=== PATIENT | male | born 1945 | race African-American/Black ===

== ENCOUNTER 2016-09-11 18:06 | Inpatient (IN) | payer OTHER, BC ==
[2016-09-11 18:55] VITALS: BMI 28.2
[2016-09-11 19:57] LABS: BASOPHIL 1.2 % (0-2.0); EOSINOPHIL 0.8 % (0-4.5); MCH 28.2 pg (25.7-33.7); MCHC 33.3 g/dl (32.0-35.9); MEAN CELL VOLUME 84.7 fl (80-96); MEAN PLT VOLUME 8.3 fl (7.5-11.1); NEUTROPHILS 65.4 % (42.8-82.8); PLATELET COUNT 266 K/MM3 (134-434); RDW 13.5 % (11.9-15.9); WHITE BLOOD COUNT 8.3 K/mm3 (4.0-10.0)
--- NOTE | 2016-09-11 20:07 | PDOC ---
History of Present Illness - General Chief Complaint: Shortness of Breath Stated Complaint: Shortness of Breath/anxiety/run out of med for htn Time Seen by Provider: 09/11/16 19:19 - History of Present Illness Initial Comments: 09/11/16 20:06 CHIEF COMPLAINT: SOB HISTORY OF PRESENT ILLNESS: 71 yo M with hx of HTN presents to ED with SOB x 2 days. Patient reports that he ran out of his blood pressure medications ( lisinoprol, amlodipine, metoprolol) and has not taken them for a week. Patient reports that he was coughing and sneezing the last two days but "thought it was allergies." He denies any chest pain, back pain, palpitations, fever, chills, nausea, vomiting, diarrhea. PCP: Fabrizio Sims: Kristin PAST MEDICAL HISTORY: as per HPI FAMILY HISTORY: both parents hx of PE, brother SOCIAL HISTORY: Former smoker, quit 35 years ago. Denies alcohol, illicit drug use. SURGICAL HISTORY: tonsillectomy, "leg surgery when i was a little kid" ALLERGIES: No known drug allergies REVIEW OF SYSTEMS General/Constitutional: Denies fever or chills. Denies weakness, weight change. HEENT: Denies change in vision. Denies ear pain or discharge. Denies sore throat. Cardiovascular: SOB x 2 days. Denies chest pain. Respiratory: Denies cough, wheezing, or hemoptysis. Gastrointestinal: Denies nausea, vomiting, diarrhea or constipation. Denies rectal bleeding. Genitourinary: Denies dysuria, frequency, or change in urination. Musculoskeletal: Denies joint or muscle swelling or pain. Denies neck or back pain. Skin and breasts: Denies rash or easy bruising. Neurologic: Denies headache, vertigo, loss of consciousness, or loss of sensation. PHYSICAL EXAM General Appearance: Well-appearing, appropriately dressed. No apparent distress. HEENT: EOMI, PERRLA, normal ENT inspection, normal voice, TMs normal, pharynx normal. No conjunctival pallor. No photophobia, scleral icterus. Neck: Supple. Trachea midline. No tenderness, rigidity, carotid bruit, stridor , lymphadenopathy, or thyromegaly. Respiratory/Chest: Shortness of breath. Lungs CTAB. No chest tenderness, respiratory distress, accessory muscle use. No crackles, rales, rhonchi, stridor , wheezing, dullness Cardiovascular: RRR. S1, S2. No JVD, murmur, bradycardia, tachycardia. Gastrointestinal/Abdominal: Normal bowel sounds. Abdomen soft, non-distended. No tenderness or rebound tenderness. No organomegaly, pulsatile mass, guarding , hernia, hepatomegaly, splenomegaly. Musculoskeletal/Extremities: Normal inspection. FROM of all extremities, normal capillary refill. Pelvis Stable. No CVA tenderness. No tenderness to extremities, pedal edema, swelling, erythema or deformity. Integumentary: Appropriate color, dry, warm. No cyanosis, erythema, jaundice or rash Neurologic: manager of distribution II-XII intact. Fully oriented, alert. Appropriate mood/affect. Motor strength 5/5. No appreciable EOM palsy, facial droop or sensory deficit. 09/11/16 20:08 09/11/16 23:19 Past History - Past Medical History Allergies/Adverse Reactions: Allergies Allergy/AdvReac Type Severity Reaction Status Date / Time No Known Allergies Allergy Verified 09/11/16 18:55 Home Medications: Ambulatory Orders Lisinopril [Prinivil] 40 mg PO DAILY 12/04/11 Metoprolol Succinate [Toprol XL] 100 mg PO BID 12/04/11 Ascorbate Calcium [Vitamin C] 1,000 mg PO DAILY 03/19/15 Aspirin [Ecotrin] 81 mg PO DAILY 03/19/15 Amlodipine Besylate [Norvasc -] 5 mg PO DAILY 09/11/16 HTN: Yes - Psycho/Social/Smoking Cessation Hx Anxiety: No Suicidal Ideation: No Smoking Status: No Smoking History: Never smoked Have you smoked in the past 12 months: No Number of Cigarettes Smoked Daily: 0 Information on smoking cessation initiated: No Hx Alcohol Use: No Drug/Substance Use Hx: No Substance Use Type: None *Physical Exam - Vital Signs Last Vital Signs Temp Pulse Resp BP Pulse Ox 97.7 F 126 H 18 153/113 94 L 09/11/16 18:10 09/11/16 18:10 09/11/16 18:10 09/11/16 18:10 09/11/16 18:10 ED Treatment Course - LABORATORY CBC & Chemistry Diagram: 09/11/16 19:50 09/11/16 19:50 - ADDITIONAL ORDERS Additional order review: 09/11/16 19:50 RBC 5.12 MCV 84.7 MCHC 33.3 RDW 13.5 MPV 8.3 Neutrophils % 65.4 Lymphocytes % 26.6 Monocytes % 6.0 Eosinophils % 0.8 Basophils % 1.2 Medical Decision Making - Medical Decision Making 09/11/16 20:11 71 yo M with hx of HTN presents to ED with SOB x 2 days. VS remarkable for pulse 126, BP 153/113, O2 sat 94. -CBC, CMP, PT/INR, D-dimer, BNP -EKG, CXR -Metoprolol 5 mg IVPUSH D-dimer 700+, CTA ordered r/o PE. Labs: glucose 387 -[address] results: PE to segmental branches of left upper and left lower lobe pulmonary artery as well as in subsegmental branches of left lower lobe. PE to RLL segmental and subsegmental branches. Ascending aorta measures 3.9 cm in AP dimension. Read by: Naveen Joseph MD -100 mg Lovenox SQ Patient BP remains 150s/110s -40 mg lisinopril -5 mg amlodipine Will admit to hospitalist for inpatient services. Discussed case with MD attending Nakul, who accepts patient for inpatient services. *DC/Admit/Observation/Transfer Diagnosis at time of Disposition: Pulmonary embolism Qualifiers: Pulmonary embolism type: other Chronicity: acute Acute cor pulmonale presence: without acute cor pulmonale Qualified Code(s): I26.99 - Other pulmonary embolism without acute cor pulmonale - Discharge Dispostion Admit: Yes - Referrals
--- NOTE | 2016-09-11 20:25 | PDOC ---
*Physical Exam - Vital Signs Last Vital Signs Temp Pulse Resp BP Pulse Ox 97.7 F 126 H 18 153/113 94 L 09/11/16 18:10 09/11/16 18:10 09/11/16 18:10 09/11/16 18:10 09/11/16 18:10 ED Treatment Course - LABORATORY CBC & Chemistry Diagram: 09/12/16 06:10 09/12/16 06:10 - ADDITIONAL ORDERS Additional order review: 09/11/16 19:50 RBC 5.12 MCV 84.7 MCHC 33.3 RDW 13.5 MPV 8.3 Neutrophils % 65.4 Lymphocytes % 26.6 Monocytes % 6.0 Eosinophils % 0.8 Basophils % 1.2 Medical Decision Making - Medical Decision Making 09/11/16 20:25 agree with care from SONIA Burnett *DC/Admit/Observation/Transfer Diagnosis at time of Disposition: Pulmonary embolism
[2016-09-11 20:30] LABS: ALBUMIN 3.4 g/dl (3.4-5.0); ANION GAP 10 (8-16); CALCIUM 8.7 mg/dL (8.5-10.1); CO2 24 mmol/L (21-32); SGOT/AST 19 U/L (15-37); SGPT/ALT 25 U/L (12-78); TOT PROT 6.8 g/dl (6.4-8.2)
[2016-09-11 20:33] LABS: ALK PHOS 84 U/L (45-117); TROPONIN I 0.02 ng/ml (0.00-0.05)
[2016-09-11 20:37] LABS: GLUCOSE,RANDOM 387 mg/dL (74-106)
[2016-09-11] MEDS ORDERED: INSULIN (NOVOLOG) ASPART 100 UNITS/ML 10ML VIAL SQ ONE (21:18)
[2016-09-11] MEDS ORDERED: SODIUM CHLORIDE 0.9% 1000 ML INFUS.BAG IV ONE (21:19)
[2016-09-11] MEDS ORDERED: METOPROLOL TARTRATE 5 MG/5 ML VIAL IVPUSH ONE (21:20)
[2016-09-11] MEDS ORDERED: METOPROLOL TARTRATE 5 MG/5 ML VIAL ONE (22:14)
[2016-09-11] MEDS ORDERED: ENOXAPARIN NA (PORCINE) 100 MG/1 ML DISP.SYRIN SQ ONE ×2 (22:38→23:00)
--- NOTE | 2016-09-11 23:18 | HP ---
<Cherie Ibarra - Last Filed: 09/12/16 01:42> CHIEF COMPLAINT: SOB PCP: Sayda Dinh HISTORY OF PRESENT ILLNESS: 71 yo M with a PMHx of HTN, DM presents with SOB x 2 days. States he had cough for the last 2 days. Also reports that he ran out of his BP medications and has not taken them for 1 week. Patient complains of chest pain upon inspiration. Patient describes the pain as pressure-like. Patient denies recent surgeries. ER course was notable for: (1) CTA appreciating bilateral PE (2) (3) Recent Travel: 2 trips to [place] in past month PAST MEDICAL HISTORY: HTN, DM PAST SURGICAL HISTORY: Tonsillectomy Social History: Smoking: Former smoker quit 35 years ago Alcohol: Denies Drugs: Denies Family History: Allergies No Known Allergies Allergy (Verified 09/11/16 18:55) HOME MEDICATIONS: Home Medications Medication Instructions Recorded Lisinopril [Prinivil] 40 mg PO DAILY 12/04/11 Metoprolol Succinate [Toprol XL] 100 mg PO BID 12/04/11 Ascorbate Calcium [Vitamin C] 1,000 mg PO DAILY 03/19/15 Aspirin [Ecotrin] 81 mg PO DAILY 03/19/15 Amlodipine Besylate [Norvasc -] 5 mg PO DAILY 09/11/16 REVIEW OF SYSTEMS CONSTITUTIONAL: Absent: fever, chills, diaphoresis, generalized weakness, malaise, loss of appetite, weight change HEENT: Absent: rhinorrhea, nasal congestion, throat pain, throat swelling, difficulty swallowing, mouth swelling, ear pain, eye pain, visual changes CARDIOVASCULAR: +Chest pain Absent: syncope, palpitations, irregular heart rate, lightheadedness, peripheral edema RESPIRATORY: +SOB Absent: cough, dyspnea with exertion, orthopnea, wheezing, stridor, hemoptysis GASTROINTESTINAL: Absent: abdominal pain, abdominal distension, nausea, vomiting, diarrhea, constipation, melena, hematochezia GENITOURINARY: Absent: dysuria, frequency, urgency, hesitancy, hematuria, flank pain, genital pain MUSCULOSKELETAL: Absent: myalgia, arthralgia, joint swelling, back pain, neck pain SKIN: Absent: rash, itching, pallor HEMATOLOGIC/IMMUNOLOGIC: Absent: easy bleeding, easy bruising, lymphadenopathy, frequent infections ENDOCRINE: Absent: unexplained weight gain, unexplained weight loss, heat intolerance, cold intolerance NEUROLOGIC: Absent: headache, focal weakness or paresthesias, dizziness, unsteady gait, seizure, mental status changes, bladder or bowel incontinence PSYCHIATRIC: Absent: anxiety, depression, suicidal or homicidal ideation, hallucinations. PHYSICAL EXAMINATION GENERAL: Awake, alert, and fully oriented, in no acute distress. HEAD: Normal with no signs of trauma. EYES: Pupils equal, round and reactive to light, extraocular movements intact, sclera anicteric, conjunctiva clear. No lid lag. EARS, NOSE, THROAT: Ears normal, nares patent, oropharynx clear without exudates. Moist mucous membranes. NECK: Normal range of motion, supple without lymphadenopathy, JVD, or masses. LUNGS: Breath sounds equal, clear to auscultation bilaterally. No wheezes, and no crackles. No accessory muscle use. HEART: Regular rate and rhythm, normal S1 and S2 without murmur, rub or gallop. ABDOMEN: Soft, nontender, not distended, normoactive bowel sounds, no guarding, no rebound, no masses. No hepatomegaly or splenomegaly. MUSCULOSKELETAL: Normal range of motion at all joints. No bony deformities or tenderness. No CVA tenderness. UPPER EXTREMITIES: 2+ pulses, warm, well-perfused. No cyanosis. No clubbing. No peripheral edema. LOWER EXTREMITIES: 2+ pulses, warm, well-perfused. No calf tenderness. No peripheral edema. NEUROLOGICAL: Cranial nerves II-XII intact. Normal speech. Normal gait. PSYCHIATRIC: Cooperative. Good eye contact. Appropriate mood and affect. SKIN: Warm, dry, normal turgor, no rashes or lesions noted, normal capillary refill. CTA report There are pulmonary emboli in segmental branches of the left upper and left lower lobe pulmonary artery as well as in subsegmental branches of the left lower lobe. There are pulmonary emboli in the right lower lobe segmental and subsegmental branches.Normal enhancement of the thoracic and included proximal abdominal aorta without evidence of aneurysmal dilatation or dissection. Ascending aorta measures 3.9 cm in AP dimension. The heart is borderline enlarged. No gross enlarged mediastinal or hilar lymph nodes are identified. Lung windows demonstrates no gross evidence of focal infiltrates, pneumothorax or pleural effusion, bilaterally.In included portion of the upper abdomen, there is early opacification of the left upper pole pelvicalyceal system. There is suggestion of a stone adjacent to the gallbladder neck region measuring 1 cm on axial image 114. Visualized osseous structures appear intact with mild degenerative changes and anterior spondylosis in the thoracic spine ECG Sinus Tachycardia @ 123 QTC prolonged @ 486. L bundle branch block. ASSESSMENT/PLAN: 71 yo M with a PMHx of HTN who presents with SOB found to have bilateral pulmonary embolism 1.) Bilateral PE -unprovoked -Lovenox 100 Q 12 -Echo -Hypercoagulable workup as outpatient -Currently hemodynamically stable. Monitor on Tele -Check coags in AM -Check CBC 2.) Uncontrolled HTN -Due to noncompliance -Restart home meds 3.) DM -Check A1C -RAISS fingersticks 4.) Hypomagnesemia -Replete magnesium 5.) Chest pain on inspiration -most likely due to PE -Trend troponin/ECG DVT ppx -On lovenox Place in Telemetry Documentation is prepared by Cherie Ibarra acting as medical technician assistant for Angelika Mota D.O. <Angelika Mota - Last Filed: 09/12/16 07:12> Ascending Aorta Dilation 3.9- follow outpt. Visit type - Emergency Visit Emergency Visit: Yes ED Registration Date: 09/11/16 Care time: The patient presented to the Emergency Department on the above date and was hospitalized for further evaluation of their emergent condition. - New Patient This patient is new to me today: Yes Date on this admission: 09/12/16 - Critical Care Critical Care patient: No
[2016-09-11] MEDS ORDERED: amLODIPine BESYLATE 5 MG TABLET (FP) PO ONE (23:20)
[2016-09-11] MEDS ORDERED: LISINOPRIL 20 MG TABLET (FP) PO ONE (23:20)
[2016-09-11] MEDS ORDERED: LISINOPRIL 20 MG TABLET (FP) ONE (23:26)
[2016-09-11] MEDS ORDERED: amLODIPine BESYLATE 5 MG TABLET (FP) ONE (23:26)
[2016-09-12] MEDS ORDERED: MAGNESIUM SULF 50% (8.12 MEQ/2 ML-1 GM VIAL) IVPB ONE (00:01)
[2016-09-12] MEDS ORDERED: MAGNESIUM SULF 50% (8.12 MEQ/2 ML-1 GM VIAL) ONE (00:44)
[2016-09-12 06:37] LABS: MCH 28.5 pg (25.7-33.7); MCHC 33.6 g/dl (32.0-35.9); MEAN CELL VOLUME 84.8 fl (80-96); MEAN PLT VOLUME 8.7 fl (7.5-11.1); PLATELET COUNT 265 K/MM3 (134-434); RDW 13.6 % (11.9-15.9); WHITE BLOOD COUNT 9.3 K/mm3 (4.0-10.0)
[2016-09-12 06:55] LABS: INR 1.11 (0.82-1.09); PROTHROMBIN TIME (PATIENT) 12.2 SEC (9.98-11.88)
[2016-09-12 06:58] LABS: ACTIVATED PTT 33.5 SECONDS (26.9-34.4)
[2016-09-12 07:26] LABS: ANION GAP 7 (8-16); CALCIUM 8.3 mg/dL (8.5-10.1); CO2 29 mmol/L (21-32); CREATININE 0.8 mg/dL (0.7-1.3); GLUCOSE,RANDOM 296 mg/dL (74-106)
[2016-09-12] MEDS: ENOXAPARIN NA (PORCINE) 100 MG/1 ML DISP.SYRIN SQ SCH ×2 (09:21→21:21)
[2016-09-12] MEDS: amLODIPine BESYLATE 5 MG TABLET (FP) PO SCH (09:36)
[2016-09-12] MEDS: LISINOPRIL 20 MG TABLET (FP) PO SCH (09:36)
[2016-09-12] MEDS: ASCORBIC ACID 500 MG TABLET (FP) PO SCH (09:37)
[2016-09-12] MEDS: METOPROLOL SUCCINATE 100 MG TAB.SR.24H (FP) PO SCH ×2 (09:37→21:21)
[2016-09-12] MEDS ORDERED: ASPIRIN COATED 81 MG TABLET.EC PO SCH (10:00)
--- NOTE | 2016-09-12 10:16 | CON.CARD ---
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 He that he ran out of his BP medications and has not taken them for 1 week. He denies chest pain, palpitations, orthopnea, PND or LE edema. Found to have elevated BP and bilateral segmental and subsegmental PE, reports family h/o thrombophilia, but denies prolonged immobility, personal h/o thrombophilia or cancer history. PCP: Fabrizio Sims: Kristin PAST MEDICAL HISTORY: as per HPI FAMILY HISTORY: both parents hx of PE, brother with DVT SOCIAL HISTORY: Former smoker, quit 35 years ago. Denies alcohol, illicit drug use. SURGICAL HISTORY: tonsillectomy, "leg surgery when i was a little kid" ALLERGIES: No known drug allergies - History Source History Provided By: Patient Limitations to Obtaining History: No Limitations - Past Medical History Cardio/Vascular: Yes: CHF, HTN Endocrine: Yes: Diabetes Mellitus - Alcohol/Substance Use Hx Alcohol Use: No - Smoking History Smoking history: Never smoked Have you smoked in the past 12 months: No Aproximately how many cigarettes per day: 0 Home Medications - Allergies Allergies/Adverse Reactions: Allergies Allergy/AdvReac Type Severity Reaction Status Date / Time No Known Allergies Allergy Verified 09/11/16 18:55 - Home Medications Home Medications: Ambulatory Orders Lisinopril [Prinivil] 40 mg PO DAILY 12/04/11 Metoprolol Succinate [Toprol XL] 100 mg PO BID 12/04/11 Ascorbate Calcium [Vitamin C] 1,000 mg PO DAILY 03/19/15 Aspirin [Ecotrin] 81 mg PO DAILY 03/19/15 Amlodipine Besylate [Norvasc -] 5 mg PO DAILY 09/11/16 Review of Systems - Review of Systems Respiratory: reports: SOB, SOB on Exertion Neurological: reports: Dizziness - Risk Factors Known Risk Factors: Yes: Diabetes Mellitus, Hypertension Vital Signs: Vital Signs Temperature 97.2 F L 09/12/16 09:34 Pulse Rate 98 H 09/12/16 09:34 Respiratory Rate 20 09/12/16 09:34 Blood Pressure 154/100 09/12/16 09:34 O2 Sat by Pulse Oximetry (%) 96 09/12/16 09:34 Constitutional: Yes: No Distress, Calm Neck: Yes: Supple Respiratory: Yes: Regular, CTA Bilaterally Gastrointestinal: Yes: Normal Bowel Sounds, Soft, Abdomen, Obese Cardiovascular: Yes: Tachycardia JVD: No Carotid Bruit: No Heart Sounds: Yes: S1, S2 Edema: No - Other Data Labs, Other Data: CBC, BMP 09/12/16 06:10 09/12/16 06:10 INR, PTT INR 1.11 (0.82-1.09) 09/12/16 06:10 Troponin, BNP 09/12/16 07:40 Troponin I 0.02 Troponin, BNP 09/12/16 07:40 [address]02 ST @ 125 LBBB c/w previous 12/19/2015, HR has increased 35 bpm Ejection Fraction %: LVEF > or = 40 % Imaging - Results Cat Scan: Report Reviewed (Bilateral segmental and subsegmental PE without RV dilatation) Problem List - Problems (1) Pulmonary embolism Code(s): I26.99 - OTHER PULMONARY EMBOLISM WITHOUT ACUTE COR PULMONALE Qualifiers: Pulmonary embolism type: other Chronicity: acute Acute cor pulmonale presence: without acute cor pulmonale Qualified Code(s): I26.99 - Other pulmonary embolism without acute cor pulmonale (2) Hypertensive cardiomyopathy Code(s): I11.9 - HYPERTENSIVE HEART DISEASE WITHOUT HEART FAILURE I43 - CARDIOMYOPATHY IN DISEASES CLASSIFIED ELSEWHERE Qualifiers: Heart failure presence: without heart failure Qualified Code(s): I11.9 - Hypertensive heart disease without heart failure; I43 - Cardiomyopathy in diseases classified elsewhere (3) Type 2 diabetes mellitus Code(s): E11.9 - TYPE 2 DIABETES MELLITUS WITHOUT COMPLICATIONS Qualifiers: Diabetes mellitus complication status: without complication Diabetes mellitus oil heaterman insulin use: without oil heaterman use Qualified Code(s): E11.9 - Type 2 diabetes mellitus without complications (4) Obstructive sleep apnea Code(s): G47.33 - OBSTRUCTIVE SLEEP APNEA (ADULT) (PEDIATRIC) (5) Left bundle branch block Code(s): I44.7 - LEFT BUNDLE-BRANCH BLOCK, UNSPECIFIED (6) Sinus tachycardia Code(s): R00.0 - TACHYCARDIA, UNSPECIFIED (7) Noncompliance w/medication treatment due to intermit use of medication Code(s): Z91.14 - PATIENT'S OTHER NONCOMPLIANCE WITH MEDICATION REGIMEN Assessment/Plan 71 yo M with a PMHx of HTN who presents with SOB found to have 1. Bilateral unprovoked pulmonary embolism with strong family h/o thrombophilia 2. Hypertensive cardiomyopathy, BP uncontrolled due to noncompliance 3. Type 2 DM 4. OSAS 5. Sinus tachycardia due to PE, underlying LBBB P:1. Lovenox 100 q12->coumadin per INR given strong suspicion of hypercoagulable state, d/c concomitant ASA 2. F/u echocardiogram 3. Hypercoagulable workup as outpatient 4. Age-appropriate malignancy screen 5. Resume lisinopril 40 qd, Toprol XL 100 bid, ASA 81 qd, Norvasc 5 qd 6. Thank you for consultative opportunity
[2016-09-12] MEDS ORDERED: INSULIN (NOVOLOG) ASPART 100 UNITS/ML 10ML VIAL ONE ×2 (10:38→16:29)
[2016-09-12] MEDS: INSULIN SLIDING SCALE (NOVOLOG) 1 VIAL SQ SCH ×5 (10:40→21:22)
[2016-09-12] MEDS ORDERED: INSULIN NPH 100 UNITS/ML *VIAL ONE (13:23)
--- NOTE | 2016-09-12 13:37 | EKG ---
Test Reason : Blood Pressure : / mmHG Vent. Rate : 123 BPM Atrial Rate : 123 BPM P-R Int : 142 ms QRS Dur : 150 ms QT Int : 340 ms P-R-T Axes : -10 -30 131 degrees QTc Int : 486 ms SINUS TACHYCARDIA WITH OCCASIONAL PREMATURE VENTRICULAR COMPLEXES LEFT AXIS DEVIATION LEFT BUNDLE BRANCH BLOCK ABNORMAL ECG WHEN COMPARED WITH ECG OF 04-DEC-2011 17:56, PREMATURE VENTRICULAR COMPLEXES ARE NOW PRESENT LEFT BUNDLE BRANCH BLOCK IS NOW PRESENT CRITERIA FOR SEPTAL INFARCT ARE NO LONGER PRESENT Confirmed by TRACI CARSON, KHANH ([id number]) on 09/12/2016 1:36:47 PM Referred By: Confirmed By:KHANH AVILES MD
--- NOTE | 2016-09-12 16:33 | PN ---
Physical Exam: SUBJECTIVE: Patient seen and examined in the ED. He says he is still SOB and anxious making it worse, he would like to eat and the sob started when he ran out of his meds OBJECTIVE: Vital Signs Period Temp Pulse Resp BP Sys/Vides Pulse Ox Last 24 Hr 97.0 F-97.2 F 90-106 20-20 146-163/89-106 96-96 PE Neuro: alert, awake, cn 2-12intact Pulm: mild tachypnea at rest, dyspnea with conversation, +NC, clear lungs CV: s1 s2 rrr no mrg Abd: s nt nd + bs Ext: warm, no le edema Laboratory Results - last 24 hr 09/11/16 09/12/16 09/12/16 23:52 06:10 06:10 WBC 9.3 RBC 4.68 Hgb 13.3 Hct 39.7 MCV 84.8 MCHC 33.6 RDW 13.6 Plt Count 265 MPV 8.7 INR 1.11 PTT (Actin FS) 33.5 Sodium Potassium Chloride Carbon Dioxide Anion Gap BUN Creatinine POC Glucometer [phone] Random Glucose Calcium Magnesium Troponin I 09/12/16 09/12/16 09/12/16 06:10 07:40 15:41 WBC RBC Hgb Hct MCV MCHC RDW Plt Count MPV INR PTT (Actin FS) Sodium 140 Potassium 3.8 Chloride 104 Carbon Dioxide 29 D Anion Gap 7 L BUN 7 D Creatinine 0.8 POC Glucometer 332 Random Glucose 296 H D Calcium 8.3 L Magnesium 2.0 Troponin I 0.02 Active Medications Generic Name Dose Route Start Last Admin Trade Name Angel Luisq PRN Reason Stop Dose Admin Amlodipine Besylate 5 mg 09/12/16 10:00 09/12/16 09:36 Norvasc - PO 5 mg DAILY CHARLY Administration Ascorbic Acid 1,000 mg 09/12/16 10:00 09/12/16 09:37 Vitamin C - PO 1,000 mg DAILY CHARLY Administration Enoxaparin Sodium 100 mg 09/12/16 10:00 09/12/16 09:21 Lovenox - SQ 100 mg BID CHARLY Administration Insulin Aspart 1 vial 09/12/16 07:00 09/12/16 13:25 Novolog Vial Sliding Scale - SQ 8 units ACHS CHARLY Administration Protocol Lisinopril 40 mg 09/12/16 10:00 09/12/16 09:36 Prinivil PO 40 mg DAILY CHARLY Administration Metoprolol Succinate 100 mg 09/12/16 10:00 09/12/16 09:37 Toprol Xl - PO 100 mg BID CHARLY Administration Warfarin Sodium 5 mg 09/12/16 18:00 Coumadin - PO DAILY@1800 CHARLY Imaging: - ECHO: LV mildly dilated, LVSF mildly reduced, apical wall akinesis, apical septal wall akinesis, mild MR, TR, RVSP 40-50mmhg - CTA: bilateral PE in segmental branches of the MARY and LLL, subsegmental branches LLL Assessment: 71 year old male with h/o nonischemic dilated cardiomyopathy, HTN, DM II, OS, admitted with worsening sob x2 days poor compliance presents with SOB x 2 days both at rest and exertion. Plan: 1. Bilateral PE - Lovenox 100 BID - Start coumadin 5mg HS - Monitor INR during bridging - Hypercoagulable work up as outpt - ECHO results above 2. non ischemic dilated cardiomyopathy - Metoprolol 100mg BID - Lisinopril 40mg daily 3. HTN - Elevated since admission, however restarting meds now, monitor trend, - Norvasc 5mg daily - Meds above 4. DM II - Check Hgb a1c - ISS, BGM ACHS - Home meds unknown 5. Borderline ascending aneurysm - Likely 6 month follow up with CT surgery - Vascular to evaluate 6. SOB - Referable to above - Does not use o2 at home - Keep spo2>92% Visit type - Emergency Visit Emergency Visit: Yes ED Registration Date: 09/11/16 Care time: The patient presented to the Emergency Department on the above date and was hospitalized for further evaluation of their emergent condition. - New Patient This patient is new to me today: Yes Date on this admission: 09/12/16 - Critical Care Critical Care patient: No
[2016-09-12] MEDS ORDERED: METOPROLOL TARTRATE 5 MG/5 ML VIAL IVPUSH ONE (17:08)
[2016-09-12] MEDS ORDERED: WARFARIN NA 5 MG TABLET (UD) PO SCH (18:00)
[2016-09-13] MEDS ORDERED: INSULIN (NOVOLOG) ASPART 100 UNITS/ML 10ML VIAL ONE ×2 (06:13→16:46)
[2016-09-13] MEDS: INSULIN SLIDING SCALE (NOVOLOG) 1 VIAL SQ SCH ×3 (06:16→16:48)
[2016-09-13] MEDS ORDERED: PT OWN MED DRAWER 7, Y5N ONE (06:21)
[2016-09-13 07:22] LABS: EOSINOPHIL 3.6 % (0-4.5); MCH 28.5 pg (25.7-33.7); MCHC 33.5 g/dl (32.0-35.9); MEAN PLT VOLUME 8.4 fl (7.5-11.1); PLATELET COUNT 243 K/MM3 (134-434); RDW 13.6 % (11.9-15.9); WHITE BLOOD COUNT 8.1 K/mm3 (4.0-10.0)
[2016-09-13 07:44] LABS: ANION GAP 9 (8-16); CALCIUM 8.7 mg/dL (8.5-10.1); CO2 29 mmol/L (21-32); CREATININE 0.8 mg/dL (0.7-1.3); GLUCOSE,RANDOM 191 mg/dL (74-106)
[2016-09-13] MEDS: METOPROLOL SUCCINATE 100 MG TAB.SR.24H (FP) PO SCH (09:17)
[2016-09-13] MEDS: LISINOPRIL 20 MG TABLET (FP) PO SCH (09:17)
[2016-09-13] MEDS: amLODIPine BESYLATE 5 MG TABLET (FP) PO SCH (09:17)
[2016-09-13] MEDS: ENOXAPARIN NA (PORCINE) 100 MG/1 ML DISP.SYRIN SQ SCH (09:17)
[2016-09-13] MEDS: ASCORBIC ACID 500 MG TABLET (FP) PO SCH (09:17)
[2016-09-13 09:56] VITALS: BP 141/100; PULSE 101; TEMP 98.1
--- NOTE | 2016-09-13 10:16 | PN ---
Progress Note (short form) - Note Progress Note: Spoke with Dr. Kaur regarding the finding of a borderline ascending thoracic aneurysm measured at 3.[address] scan with IV contrast dated 09/11/2016. He recommends cardiothoracic follow-up as an outpatient to monitor the aneurysm.
--- NOTE | 2016-09-13 10:29 | PN ---
Progress Note, Physician Chief Complaint: Events noted Appears not in distress History of Present Illness: Patient was seen and examined. Awake and alert. Chart was reviewed Denies chest pain or palpitations Less SOB No cough or expectorations - Current Medication List Current Medications: Active Medications Amlodipine Besylate (Norvasc -) 5 mg PO DAILY [facility] Last Admin: 09/13/16 09:17 Dose: 5 mg Ascorbic Acid (Vitamin C -) 1,000 mg PO DAILY [facility] Last Admin: 09/13/16 09:17 Dose: 1,000 mg Enoxaparin Sodium (Lovenox -) 100 mg SQ BID [facility] Last Admin: 09/13/16 09:17 Dose: 100 mg Insulin Aspart (Novolog Vial Sliding Scale -) 1 vial SQ ACHS [facility] PRN Reason: Protocol Last Admin: 09/13/16 06:16 Dose: 2 units Lisinopril (Prinivil) 40 mg PO DAILY [facility] Last Admin: 09/13/16 09:17 Dose: 40 mg Metoprolol Succinate (Toprol Xl -) 100 mg PO BID [facility] Last Admin: 09/13/16 09:17 Dose: 100 mg Warfarin Sodium (Coumadin -) 5 mg PO DAILY@1800 [facility] Last Admin: 09/12/16 17:37 Dose: 5 mg - Objective Vital Signs: Vital Signs Temperature 98.1 F 09/13/16 09:55 Pulse Rate 101 H 09/13/16 09:55 Respiratory Rate 22 09/13/16 09:55 Blood Pressure 141/100 09/13/16 09:55 O2 Sat by Pulse Oximetry (%) 97 09/13/16 09:00 Neck: Yes: Supple Cardiovascular: Yes: Regular Rate and Rhythm, Tachycardia, S1, S2. No: Murmur Respiratory: Yes: Diminished Gastrointestinal: Yes: Normal Bowel Sounds, Soft. No: Tenderness Edema: No Additional Findings/Remarks: - Review of Systems Constitutional: denies: Chills, Fever Cardiovascular: denies: Palpitations. denies: Chest Pain, (+) Shortness of Breath - improved Respiratory: Denies: Cough. denies: Hemoptysis, Orthopnea, PND, (+) SOB, SOB on Exertion, (-) Wheezing Gastrointestinal: denies: Abdominal Pain, Constipation, Diarrhea, Melena, Nausea , Rectal Bleeding, Vomiting Musculoskeletal: denies: Joint Pain Neurological: denies: Dizziness, Headache, Seizure, Syncope, Unsteady Gait, Weakness Labs: CBC, BMP 09/13/16 06:00 09/13/16 06:00 INR, PTT INR 1.11 (0.82-1.09) 09/12/16 06:10 Problem List - Problems (1) Hypertensive cardiomyopathy Code(s): I11.9 - HYPERTENSIVE HEART DISEASE WITHOUT HEART FAILURE I43 - CARDIOMYOPATHY IN DISEASES CLASSIFIED ELSEWHERE Qualifiers: Heart failure presence: without heart failure Qualified Code(s): I11.9 - Hypertensive heart disease without heart failure; I43 - Cardiomyopathy in diseases classified elsewhere (2) Left bundle branch block Code(s): I44.7 - LEFT BUNDLE-BRANCH BLOCK, UNSPECIFIED (3) Obstructive sleep apnea Code(s): G47.33 - OBSTRUCTIVE SLEEP APNEA (ADULT) (PEDIATRIC) (4) Pulmonary embolism Code(s): I26.99 - OTHER PULMONARY EMBOLISM WITHOUT ACUTE COR PULMONALE Qualifiers: Pulmonary embolism type: other Chronicity: acute Acute cor pulmonale presence: without acute cor pulmonale Qualified Code(s): I26.99 - Other pulmonary embolism without acute cor pulmonale (5) Sinus tachycardia Code(s): R00.0 - TACHYCARDIA, UNSPECIFIED (6) Type 2 diabetes mellitus Code(s): E11.9 - TYPE 2 DIABETES MELLITUS WITHOUT COMPLICATIONS Qualifiers: Diabetes mellitus complication status: without complication Diabetes mellitus intermodal dispatcher insulin use: without intermodal dispatcher use Qualified Code(s): E11.9 - Type 2 diabetes mellitus without complications Assessment/Plan 1. Bilateral unprovoked pulmonary embolism with strong family history of thrombophilia and FH of emboli - consider hypercoagulable state 2. Hypertensive cardiomyopathy, BP uncontrolled 3. Type 2 DM 4. OSAS 5. Sinus tachycardia due to PE and underlying LBBB PLAN: 1. Continue Lovenox 100 mg SQ q12 for now, but consider Coumadin per INR given strong suspicion of hypercoagulable state. ASA stopped. Evaluate for hypercoagulable state 2. Echocardiography reveals mildly reduced LV systolic function with regional wall motion abnormality, mild MR and TR, pulmonary hypertension, aortic root dilatation 3. Consider age-appropriate malignancy screen 4. Continue Lisinopril 40 mg qd, Toprol XL 100 mg bid and Norvasc 5 mg qd Further plans are to follow Horace Rivera MD
--- NOTE | 2016-09-13 10:54 | DS ---
Physical Exam: SUBJECTIVE: Patient seen and examined sitting on edge of bed. Feels well, no complaints. SOB has improved. Seen ambulating on the floor. OBJECTIVE: Vital Signs Period Temp Pulse Resp BP Sys/Vides Pulse Ox Last 24 Hr 97.0 F-98.8 F 84-106 19-22 123-163/82-111 90-97 PHYSICAL EXAM GENERAL: The patient is awake, alert, and fully oriented, in no acute distress. HEAD: Normal with no signs of trauma. EYES: PERRL, extraocular movements intact, sclera anicteric, conjunctiva clear. LUNGS: Breath sounds equal, clear to auscultation bilaterally, no wheezes, no crackles, no accessory muscle use. HEART: Regular rate and rhythm, S1, S2 without murmur, rub or gallop. ABDOMEN: Soft, nontender, nondistended, normoactive bowel sounds, no guarding, no rebound EXTREMITIES: 2+ pulses, warm, well-perfused, no edema. NEUROLOGICAL: Cranial nerves II through XII grossly intact. Normal speech, steady gait Laboratory Results - last 24 hr 09/12/16 09/13/16 09/13/16 21:00 05:30 06:00 WBC RBC Hgb Hct MCV MCHC RDW Plt Count MPV Neutrophils % Lymphocytes % Monocytes % Eosinophils % Basophils % Sodium Potassium Chloride Carbon Dioxide Anion Gap BUN Creatinine POC Glucometer 278 176 Random Glucose Hemoglobin A1c % 12.9 H Calcium 09/13/16 09/13/16 06:00 06:00 WBC 8.1 RBC 4.86 Hgb 13.8 Hct 41.3 MCV 85.0 MCHC 33.5 RDW 13.6 Plt Count 243 MPV 8.4 Neutrophils % 46.0 D Lymphocytes % 43.1 H D Monocytes % 6.3 Eosinophils % 3.6 D Basophils % 1.0 Sodium 141 Potassium 3.9 Chloride 103 Carbon Dioxide 29 Anion Gap 9 BUN 8 Creatinine 0.8 POC Glucometer Random Glucose 191 H D Hemoglobin A1c % Calcium 8.7 HOSPITAL COURSE: Date of Admission:09/11/16 Date of Discharge: 09/13/16 71 year-old male with a significant PMH of HTN, non-ischemic dilated cardiomyopathy, and uncontrolled diabetes, poorly compliant with seeking medical care or taking medication. Admitted for bilateral pulmonary emboli. Imaging 09/11 CTA: borderline aneursymal dilitation of ascending aorta 3.9cm; pulmonary emboli KUNAL, LLL, RLL 09/12 Echo: LV mildly reduced, apical anterior wall akinesis, apical septal wall akinesis, apical dyskinesis; RV not well-visualized; mild MR; mild TR, mild pHTN Bilateral pulmonary emboli --imaging as above --treated with full-dose lovenox and began bridging to coumadin 5mg qhs --discharge with prescriptions for lovenox 1.5mg/kg --will need hypercoagulable workup as outpatient; family history of thrombophilia and emboli --close outpatient followup; patient has not had PCP > one year; appointment made with Dr. Kelly for 09/18 Non ischemic dilated cardiomyopathy --continued on metoprolol, lisinopril Hypertension --treated with metoprolol, lisinopril, amlodipine Uncontrolled diabetes --HgbA1C 12.9 --has not been on medication --discharged with prescription for Levemir pen Borderline ascending aneurysm -- will need 6-month followup Minutes to complete discharge: 35 Discharge Summary Reason For Visit: PULMONARY EMBOLISM Current Active Problems Hypertensive cardiomyopathy (Acute) Left bundle branch block (Acute) Noncompliance w/medication treatment due to intermit use of medication (Acute) Obstructive sleep apnea (Acute) Pulmonary embolism (Acute) Sinus tachycardia (Acute) Type 2 diabetes mellitus (Acute) Condition: Improved - Instructions Diet, Activity, Other Instructions: Six prescriptions have been sent to your pharamacy. It is important you take these medications as directed. An appointment has been made for you to see Dr. Mary Kelly on SaturdaySeptember 18 at 4:15pm. Return to the emergency department for any new or worsening symptoms. Referrals: Mary Herman MD [Staff Physician] - 09/18/16 4:15 pm Disposition: HOME - Home Medications Comprehensive Discharge Medication List: Ambulatory Orders Lisinopril [Prinivil] 40 mg PO DAILY 12/04/11 Metoprolol Succinate [Toprol XL -] 100 mg PO BID 12/04/11 Ascorbate Calcium [Vitamin C] 1,000 mg PO DAILY 03/19/15 Aspirin [Ecotrin] 81 mg PO DAILY 03/19/15 Amlodipine Besylate [Norvasc -] 5 mg PO DAILY 09/11/16 Alcohol Antiseptic Pads [Easy Touch Alcohol Prep Pads] 1 each TP DAILY #1 box Enoxaparin Sodium [Lovenox] 150 mg SQ DAILY #7 ml 09/13/16 Warfarin Na [Coumadin -] 5 mg PO DAILY@1800 #30 tablet 09/13/16 This patient is new to me today: Yes Date on this admission: 09/13/16 Emergency Visit: Yes ED Registration Date: 09/11/16 Care time: The patient presented to the Emergency Department on the above date and was hospitalized for further evaluation of their emergent condition. Critical Care patient: No - Discharge Referral Referred to [facility] Yes Physician Referral: Mary Herman MD ([facility])
[2016-09-13] MEDS ORDERED: WARFARIN NA 5 MG TABLET (UD) PO ONE (15:38)
[2016-09-13] MEDS ORDERED: ENOXAPARIN NA (PORCINE) 60 MG/0.6 ML DISP.SYRIN SQ ONE (15:45)
== END 2016-09-13 18:15 | disposition home or self-care (01) | DRG 176 ==
LOC: JER 18:06 → JERBED 23:19 → UNDOADMIN 23:35 → J4W 09-12 14:21
PROVIDERS: ADMIT Internal Medicine; ATTEND Nurse Practitioner Acute Care
DX: I26.99 Other pulmonary embolism without acute cor pulmonale (principal); I42.8 Other cardiomyopathies; D68.59 Other primary thrombophilia; I10 Essential (primary) hypertension; E83.42 Hypomagnesemia; R07.89 Other chest pain; G47.33 Obstructive sleep apnea (adult) (pediatric); I44.7 Left bundle-branch block, unspecified; R00.0 Tachycardia, unspecified; I71.2 Thoracic aortic aneurysm, without rupture; E11.65 Type 2 diabetes mellitus with hyperglycemia; Z87.891 Personal history of nicotine dependence; Z91.14 Patient's other noncompliance with medication regimen
CPT/HCPCS: 36415; 71010-TC; 71275-TC; 80048; 80053; 82550; 83036; 83605; 83735; 83880; 84484; 85025; 85027; 85379; 85610; 85730; 93005; 93010; 93306-TC; 99285-25

== ENCOUNTER 2016-09-15 12:36 | Emergency (ER) | payer OTHER, BC ==
[2016-09-15 12:49] VITALS: BP 151/88; TEMP 98; BMI 35.3
--- NOTE | 2016-09-15 13:27 | PDOC ---
History of Present Illness - General Chief Complaint: Blood Pressure Problem Stated Complaint: BLOOD PRESSURE PROBLEM Time Seen by Provider: 09/15/16 13:13 History Source: Patient Exam Limitations: No Limitations - History of Present Illness Initial Comments: CHIEF COMPLAINT: 71 y/o afebrile male with PMH IDDM, HTN, on Coumadin here because his visiting nurse sent him for high BP. HISTORY OF PRESENT ILLNESS: The patient states his visiting nurse took his BP at home and told him it was very high. SHe called his PCP who suggested he come here. He also admits he forgot to take his insulin last night. The patient states he feels completely fine, with no complaints. He denies SPENCER, changes in vision/hearing, neck pain, n/v/d, f/c, CP, SOB, abd pain, back pain. Vital signs on arrival are within normal limits. REVIEW OF SYSTEMS: GENERAL/CONSTITUTIONAL: No fever/chills. No weakness. No weight change. HEAD, EYES, EARS, NOSE AND THROAT: No change in vision. No ear pain or discharge. No sore throat. CARDIOVASCULAR: No chest pain or shortness of breath. RESPIRATORY: No cough, wheezing, or hemoptysis. GASTROINTESTINAL: No abd pain, nausea, vomiting, diarrhea. GENITOURINARY: No dysuria, frequency, or change in urination. MUSCULOSKELETAL: No joint or muscle swelling or pain. No neck or back pain. SKIN: No rash or easy bruising. NEUROLOGIC: No headache, vertigo, loss of consciousness, or loss of sensation. PHYSICAL EXAM: GENERAL: The patient is awake, alert, and fully oriented, in no acute distress. He is very well appearing, ambulatory, in NAD or obvious discomfort. HEAD: Normal with no signs of trauma. ENT: Pupils equal, round and reactive to light, extraocular movements intact, sclera anicteric, conjunctiva clear. Neck supple. LUNGS: Clear to auscultation bilaterally. Normal excursion. No respiratory distress or use of accessory muscles. CV: RRR, S1/S2, no MRG. Cap refill < 2 sec. ABDOMEN: Soft, non-distended, non-tender even to deep palpation, no hepatomegaly or splenomegaly, no masses. EXTREMITIES: Normal range of motion, no edema. NEUROLOGICAL: Normal speech, normal gait. CN II-XII grossly intact. PSYCH: Normal mood, normal affect. SKIN: Warm, dry, normal turgor, no rashes or lesions noted. Past History - Past Medical History Allergies/Adverse Reactions: Allergies Allergy/AdvReac Type Severity Reaction Status Date / Time No Known Allergies Allergy Verified 09/15/16 12:44 Home Medications: Ambulatory Orders Ascorbate Calcium [Vitamin C] 1,000 mg PO DAILY 03/19/15 Aspirin [Ecotrin] 81 mg PO DAILY 03/19/15 Alcohol Antiseptic Pads [Easy Touch Alcohol Prep Pads] 1 each TP DAILY #1 box Amlodipine Besylate [Norvasc -] 5 mg PO DAILY #30 tab 09/13/16 Enoxaparin Sodium [Lovenox] 150 mg SQ DAILY #7 ml 09/13/16 Insulin (Levemir) [Levemir Flexpen -] 10 units SQ HS #1 pen 09/13/16 Lisinopril [Prinivil] 40 mg PO DAILY #30 tab 09/13/16 Metoprolol Succinate [Toprol XL -] 100 mg PO BID #60 tab 09/13/16 Miscellaneous Medical Supply [Glucometer Device] 1 each TP ASDIR #1 kit [facility]isc[employer] [Glucometer Test Strips #100] 1 each TP ASDIR #1 box 09/13/16 Warfarin Na [Coumadin -] 5 mg PO DAILY@1800 #30 tablet 09/13/16 Pen Needle, Diabetic [Insulin Pen Needle] 1 each MC DAILY #90 dis.needle Diabetes: Yes HTN: Yes Hypercholesterolemia: Yes - Psycho/Social/Smoking Cessation Hx Anxiety: No Suicidal Ideation: No Smoking Status: No Smoking History: Never smoked Have you smoked in the past 12 months: No Number of Cigarettes Smoked Daily: 0 Information on smoking cessation initiated: No Hx Alcohol Use: No Drug/Substance Use Hx: No Substance Use Type: None *Physical Exam - Vital Signs Last Vital Signs Temp Pulse Resp BP Pulse Ox 98.0 F 100 H 18 151/88 100 09/15/16 12:45 09/15/16 12:45 09/15/16 12:45 09/15/16 12:45 09/15/16 12:45 Medical Decision Making - Medical Decision Making A/P: 71 y/o male with no complaints sent in by Visiting Nurse for high blood pressure and because he forgot to take insulin last night. Plan is as follows: 1. BP check 2. BGM BP 150/88 BGM - 367 The patient remains feeling well. His HR has improved as well, down to 91. The patient does admit he was very nervous when he came in. WIll discharge to home. Instructed him to take his insulin when he gets home and return to the ER with any worsening or concerning symptoms. The patient verbalizes understanding of all instructions, has no further questions and is awaiting discharge. *DC/Admit/Observation/Transfer Diagnosis at time of Disposition: Worried well - Discharge Dispostion Disposition: HOME Condition at time of disposition: Good - Referrals Referrals: Mary Hermna MD [Primary Care Provider] - Call tomorrow - Patient Instructions Printed Discharge Instructions: DI for High Blood Pressure, How to Monitor Your Blood Pressure at Home Additional Instructions: Discharge Instructions: -Please take your insulin when you get home -Call your doctor tomorrow -Return to the ER with any worsening or concerning symptoms.
[2016-09-15 14:00] VITALS: PULSE 91
== END 2016-09-15 14:00 | disposition home or self-care (01) ==
LOC: JERFT 12:36
DX: Z03.89 Encounter for observation for other suspected diseases and conditions ruled out (principal); I10 Essential (primary) hypertension; E11.9 Type 2 diabetes mellitus without complications; Z79.4 Long term (current) use of insulin; E78.00 Pure hypercholesterolemia, unspecified; Z79.01 Long term (current) use of anticoagulants
CPT/HCPCS: 99281-25